=== PATIENT | male | born 2000 | race Caucasian/White ===

== ENCOUNTER 2021-11-28 17:03 | Emergency (ER) | payer OTHER ==
[2021-11-28 17:13] VITALS: BP 121/68
--- NOTE | 2021-11-28 18:09 | ED Physician Documentation ---
History of Present Illness - Stated complaint Stated Complaint: FEVER/SORE THROAT/VOM - Chief complaint Chief Complaint: General - History obtained from History obtained from: Patient - Additonal information Additional information: Previously healthy 21-year-old gentleman has been sick for about 2 days with runny nose, sore throat, body aches, fever up to 102. The sore throat is prominent. He has been vomiting and there are some small blood flecks in the vomit. Review of Systems Ten Systems: 10 systems reviewed and negative Constitutional: reports: Fever, Chills, Myalgias, Fatigue Nose: reports: Rhinorrhea / runny nose, Congestion Throat: reports: Sore throat Respiratory: reports: Cough. denies: Dyspnea PD PAST MEDICAL HISTORY - Present Medications Home Medications: Ambulatory Orders Medication Instructions Recorded Confirmed HYDROcod/ACETAM 5/325 [[place] 5/325] 1 - 2 tab PO Q6H PRN #7 tablet 11/28/21 Ibuprofen [Motrin] 800 mg PO Q8H PRN #14 tablet 11/28/21 - Allergies Allergies/Adverse Reactions: Allergies Allergy/AdvReac Type Severity Reaction Status Date / Time No Known Drug Allergies Allergy Verified 11/28/21 17:13 PD ED PE NORMAL - Vitals Vital signs reviewed: Yes - General General: Alert and oriented X 3, No acute distress - HEENT HEENT: Other (Inflamed tonsillar pillars without exudates or adenopathy) - Neck Neck: Supple, no meningeal sign, No bony TTP - Cardiac Cardiac: RRR, No murmur - Respiratory Respiratory: No respiratory distress, Clear bilaterally - Derm Derm: No rash - Neuro Neuro: Alert and oriented X 3, Normal speech Results - Vitals Vitals: Vital Signs - 24 hr 11/28/21 17:09 Temperature 37.0 C Heart Rate 119 H Respiratory 18 Rate Blood Pressure 121/68 O2 Saturation 100 Oxygen O2 Source Room air - Labs Labs: Laboratory Tests 11/28/21 11/28/21 17:30 18:25 SARS-CoV-2 (PCR) NOT DETECTED Group A Strep Rapid Negative PD MEDICAL DECISION MAKING - ED course ED course: 21-year-old gentleman with viral pharyngitis. Covid and strep negative here. He was administered Decadron and Zofran as well as a prepack of Vicodin. Departure - Departure Disposition: 01 Home, Self Care Clinical Impression: Viral pharyngitis Condition: Good Record reviewed to determine appropriate education?: Yes Instructions: ED Pharyngitis Viral Prescriptions: Ibuprofen [Motrin] 800 mg PO Q8H PRN #14 tablet PRN Reason: PAIN &/OR FEVER HYDROcod/ACETAM 5/325 [[place] 5/325] 1 - 2 tab PO Q6H PRN #7 tablet PRN Reason: Pain Comments: I sent your prescriptions electronically to [facility] in [place]. Return if worsening or if not better over the next 48 hours or so. Forms: Activity restrictions Discharge Date/Time: 11/28/21 19:03
[2021-11-28] MEDS: DEXAMETHASONE 10 MG/ML VIAL PO STA (18:30)
[2021-11-28] MEDS: ONDANSETRON ODT 4 MG TABLET TL STA (18:30)
[2021-11-28] MEDS: CHERRY SYRUP 10 ML UDC PO ONE (18:30)
[2021-11-28 18:45] LABS: RAPID STREP SCREEN Negative (Negative)
[2021-11-28] MEDS: HYDROcod/ACET 5/325 Prepack 4 PO STA (18:59)
--- NOTE | 2021-11-30 14:54 | ED Physician Documentation ---
ED Addendum - Addendum Addendum: 11/30/21 14:54 Strep culture has come positive for group C strep. Penicillin VK 500 mg p.o. twice daily for 10 days was E scribed to the [facility] in [place]. Patient was notified via phone by nursing staff.
== END 2021-11-28 19:03 | disposition home or self-care (01) ==
LOC: ED 17:03
DX: J02.8 Acute pharyngitis due to other specified organisms (principal); Z20.828 Contact with and (suspected) exposure to other viral communicable diseases
CPT/HCPCS: 87070; 87430; 87635; 99282; 99283; A9270; Q0162

== ENCOUNTER 2023-04-04 16:45 | Outpatient (CLI) | payer OTHER ==
[2023-04-05 14:06] LABS: NEISSERIA GONORRHOEAE DNA NEGATIVE (NEGATIVE); TRICHOMONAS VAGINALIS DNA NEGATIVE (NEGATIVE)
[2023-04-05 14:10] LABS: CHLAMYDIA TRACHOMATIS DNA POSITIVE (NEGATIVE)
== END 2023-04-04 17:00 | disposition home or self-care (01) ==
LOC: LAB.N 16:45
PROVIDERS: ATTEND Emergency Medicine
DX: Z20.2 Contact with and (suspected) exposure to infections with a predominantly sexual mode of transmission (principal)
CPT/HCPCS: 87491; 87591; 87661